=== PATIENT | female | born 1985 ===

== ENCOUNTER → 2017-05-31 | Outpatient (CLI) | payer BC | END | disposition home or self-care (01) | LOC: C.PAPS 15:49 | PROVIDERS: ATTEND Obstetrics & Gynecology | DX: Z01.419 Encounter for gynecological examination (general) (routine) without abnormal findings (principal); Z11.51 Encounter for screening for human papillomavirus (HPV) ==

== ENCOUNTER → 2017-06-03 | Outpatient (CLI) | payer BC ==
--- NOTE | 2017-06-06 08:00 | MAMMOGRAPHY REPORT ---
BILATERAL DIGITAL DIAGNOSTIC MAMMOGRAM TOMOSYNTHESIS WITH CAD AND TARGETED BILATERAL ULTRASOUND: 05/20 CLINICAL HISTORY: The patient reports that her provider felt a palpable lump on the left breast and a fermin of fibrocystic tissue in the right breast during a routine clinical exam. TECHNIQUE: Breast tomosynthesis in addition to standard 2D mammography was performed. Current study was also evaluated with a Computer Aided Detection (CAD) system. Bilateral CC and MLO 2-D and tomosy nthesis images were obtained. COMPARISON: No prior exams were available for comparison. BREAST COMPOSITION: The tissue of both breasts is heterogeneously dense, which may obscure small mas ses. FINDINGS: A triangle marker rosario the site of the palpable lump in the left 9:00 breast. No suspicio us masses or other suspicious mammographic abnormalities are seen in this region. The remainder of b oth breasts are negative mammographically, without suspicious masses, calcifications, or areas of arc hitectural distortion noted. A few scattered bilateral punctate benign-appearing calcifications are noted. Targeted ultrasound was performed of the area of the palpable lump pointed out by the patient in the left 9:00 region. Additionally, ultrasound was performed of the right 6:00 breast in the region of t he fibrocystic tissue. Sonographically normal tissue is seen in these regions, without evidence of a mass or other suspicious sonographic abnormality. IMPRESSION: ACR BI-RADS CATEGORY 2: BENIGN, TARGETED ULTRASOUND ACR BI-RADS CATEGORY 2: BENIGN No suspicious mammographic or sonographic abnormalities at the sites of bilateral palpable findings. There is no mammographic or targeted sonographic evidence of malignancy. Recommend clinical follow- up, and recommend routine bilateral screening mammograms at the age of 40 unless otherwise clinically indicated. The patient has been verbally notified of the results. Approximately 10% of breast cancers are not detected with mammography. A negative mammographic report should not delay biopsy if a clinically suggestive mass is present. Teresa Jerry M.D. /:06/03/2017 13:54:04 Director Of Nursing: Kelly DOLL)(Genevieve), [facility] letter sent: Normal 1/2 BI-RADS Code: ACR BI-RADS Category 2: Benign Ultrasound BI-RADS: ACR BI-RADS Category 2: Benign
== END | disposition home or self-care (01) ==
LOC: C.MAMM 13:15
PROVIDERS: ATTEND Obstetrics & Gynecology
DX: N63.20 Unspecified lump in the left breast, unspecified quadrant (principal); N60.11 Diffuse cystic mastopathy of right breast